=== PATIENT | female | born 1955 | race Caucasian/White ===

== ENCOUNTER 2016-09-18 09:15 | Observation (INO) ==
[2016-09-18] MEDS ORDERED: ASPIRIN PO STA (09:20)
[2016-09-18 09:34] LABS: MANUAL DIFF NEEDED? NO
[2016-09-18 09:36] LABS: BASO% 0.5 % (0.0-0.8); EOS# 0.27 X1000 (0.0-0.7); EOS% 3.3 % (0.0-10.0); HEMATOCRIT 42.5 % (37.0-47.0); HEMOGLOBIN 14.8 g/dL (12.0-16.0); IMM GRAN# 0.01 X1000 (0.0-0.04); IMM GRAN% 0.1 % (0.0-0.5); LYMPH# 2.63 X1000 (1.2-3.4); LYMPH% 32.4 % (20.5-51.1); MCH 29.7 PG (27-31); MCHC 34.8 g/dL (33-37); MCV 85.2 FL (81-99); MONO# 0.81 X1000 (0.11-0.59); MPV 9.6 FL (7.4-10.4); NEUT% 53.7 % (42.2-75.2); PLT 220 X1000 (130-400); RBC 4.99 XMIL (4.2-5.4)
--- NOTE | 2016-09-18 09:36 | EKG Report ---
Test Performed on : 09/18/2016 09:25:24 AM Test Reason : CHEST PAIN Blood Pressure : / mmHG Vent. Rate : 084 BPM Atrial Rate : 084 BPM P-R Int : 142 ms QRS Dur : 082 ms QT Int : 394 ms P-R-T Axes : 052 032 082 degrees QTc Int : 465 ms Normal sinus rhythm. Low voltage QRS Borderline ECG No previous ECGs available Unconfirmed Result
[2016-09-18 09:56] LABS: ALBUMIN 4.4 g/dL (3.5-5.0); CALCIUM 9.8 mg/dL (8.8-10.2); MAGNESIUM 1.9 mg/dL (1.5-2.7); POTASSIUM 4.1 mmol/L (3.5-5.1); TOTAL BILIRUBIN 0.3 mg/dL (0.20-1.00); TOTAL PROTEIN 7.4 g/dL (6.3-8.3)
[2016-09-18 09:58] LABS: URINE CULTURE PL NEEDED? NO
[2016-09-18 10:00] LABS: BILIRUBIN URINE NEGATIVE (NEGATIVE); BLOOD URINE NEGATIVE (NEGATIVE); CLARITY CLEAR (CLEAR); COLOR YELLOW; GLUCOSE URINE NEGATIVE (NEGATIVE); LEUKOCYTES URINE NEGATIVE (NEGATIVE); NITRITE URINE NEGATIVE (NEGATIVE); PROTEIN URINE NEGATIVE (NEGATIVE); UROBILINOGEN URINE NORMAL
[2016-09-18 10:02] LABS: INR 0.92 (0.86-1.15); PROTIME 12.7 Seconds (12.1-15.5)
[2016-09-18 10:03] LABS: PTT PL 33.9 Seconds (22.6-43.9)
--- NOTE | 2016-09-18 10:09 | Diag Imaging Result Doc PS360 ---
EXAM: CHEST-PORTABLE HISTORY: chest pain TECHNIQUE: Erect AP portable at 0948 COMMENT: There is apparent atelectasis in the right middle lobe. The heart size and pulmonary vascularity are within normal limits. There are no previous studies. IMPRESSION: Right middle lobe atelectasis. The possibility of underlying pneumonia cannot be excluded. Advise follow-up until clear. Electronically signed by Jean Marie Garcia 09/18/2016 10:06 AM
[2016-09-18 10:18] LABS: URINE EPITHELIAL CELLS <10 /HPF (<10); URINE SOURCE CLEAN CATCH
[2016-09-18] MEDS ORDERED: TORADOL IV ONE (10:59)
--- NOTE | 2016-09-18 11:01 | PROVIDER DOCUMENTATION ---
This chart was entered by Zully Woodward Scribe, acting as scribe for Carl Medrano MD. HPI-Chest Pain - General Chief Complaint: General Adult Stated Complaint: CHEST PAIN Time Seen by Provider: 09/18/16 09:19 Source: patient, family (Pt ) Allergies/Adverse Reactions: Patient Allergies Allergy/AdvReac Type Severity Reaction Status Date / Time amoxicillin Allergy Unknown Unknown Verified 09/18/16 09:32 morphine Allergy Unknown Unknown Verified 09/18/16 09:32 promethazine [From Phenergan] Allergy Unknown Unknown Verified 09/18/16 09:32 Sulfa (Sulfonamide Allergy Unknown Unknown Verified 09/18/16 09:32 Antibiotics) Home Medications: Home Medication List Medication Instructions Recorded Confirmed Last Taken Type Amlodipine Besylate [Amlodipine 1 tab PO DAILY 09/18/16 09/18/16 Unknown History Besylate] Aspirin 1 tab PO HS 09/18/16 09/18/16 Unknown History Clopidogrel Bisulfate [Plavix] 1 tab PO HS 09/18/16 09/18/16 Unknown History Diazepam 1 - 2 tab PO HS PRN 09/18/16 09/18/16 Unknown History Hydroxyzine HCl [Hydroxyzine HCl] 1 tab PO Q4-8H PRN PRN 09/18/16 09/18/16 Unknown History Montelukast [Singulair] 1 tab PO 09/18/16 09/18/16 Unknown History Oxycodone HCl 15 mg PO Q6H PRN PRN 09/18/16 09/18/16 Unknown History Ramipril [Altace] 10 mg PO 09/18/16 09/18/16 Unknown History Temazepam 1 tab PO 09/18/16 09/18/16 Unknown History Tizanidine HCl [Zanaflex] 1 - 2 tab PO 09/18/16 09/18/16 Unknown History Vortioxetine Hydrobromide 1 tab PO 09/18/16 09/18/16 Unknown History [Trintellix] - History of Present Illness-CP Nature of Presenting Problem: Pt is a 61 yof that presents to er with cc of left substernal squeezing chest pain x 0500 this am. Reports mild at this time. Pt reports has had two stents placed in 2010 in [place] and [facility] two years ago when she seen cell efficiency supervisor last they told her the stents were 50% blocked already. Pt reports she is a smoker and has tried quitting but is unable to. Pt also reports she is a diabetic (not treated), has hypertension, and high cholesterol. States takes an aspirin every night. Pt also reports she is a kidney donor (L) since 1991 and states couple weeks ago she went to see her Family doctor and states her kidney functions were low. Pt has noticed an odor to her urine and her right "kidney) hurting. Pt does not have an established cell efficiency supervisor in [place]. Location: reports: substernal Chest Pain Radiation: reports: no radiation Quality of Pain: reports: other (squeezing) Severity in ED: mild Onset/Duration: this morning Timing: still present Aspirin Treatment Today: 325 mg x 1, provided by ED Similar Symptoms Previously?: Yes Recently Seen Here or By Another Healthcare Provider: Yes Review of Systems - Adult - REVIEW OF SYSTEMS - ADULT Constitutional: denies: chills, fever, fatique Eyes: reports: no symptoms reported Ears, Nose, Mouth & Throat: reports: no symptoms reported Cardiovascular: reports: chest pain. denies: irregular heart rate, orthopnea, syncope Respiratory: denies: cough, shortness of breath, wheezing Gastrointestinal: reports: no symptoms reported Genitourinary: reports: see HPI, flank pain. denies: dysuria, hematuria, hesitency, incontinence, urinary retention, urgency Musculoskeletal: reports: no symptoms reported Integumentary: reports: no symptoms reported Neurological: reports: no symptoms reported Psychiatric: reports: no symptoms reported Endocrine: reports: no symptoms reported Hematologic/Lymphatic: reports: no symptoms reported Allergic/Immunologic: reports: no symptoms reported All Other Systems: Reviewed and Negative Past History - Adult - PAST MEDICAL HISTORY-ADULT Review of Records: reports: Nursing Assessment Review, Medications Reviewed Major Childhood Illnesses: reports: denies history Cardiovascular: reports: cardiac disease, HTN Respiratory: denies: cystic fibrosis, lung disease, tuberculosis Genitourinary: reports: other (kidney donor left) Musculoskeletal: reports: chronic pain (migraines) Neurological: reports: headaches/migraines - PRIOR SURGERIES/PROCEDURES Surgical/Procedure History: reports: cardiac stent - IMMUNIZATION STATUS Childhood Immunizations: See Nurse Assessment Flu Vaccine: See Nurse Assessment - SOCIAL HISTORY Smoking: cigarettes, greater than 1 pack/day Provider spent 3-5 mins advising pt. on dangers of tobacco.: Discussed manners to quit use, and f/u contacts for add'l counseling. Substance Use: none/never Alcohol Use Frequency: never Physical Exam-General - PHYSICAL EXAM-ADULT Initial Vital Signs Reviewed: Yes - CONSTITUTIONAL General Appearance: appears well, alert, mild distress - EYES Eyes: PERRL/EOMI - NECK Neck: non-tender, full range of motion, supple, normal inspection - RESPIRATORY Respiratory: chest non-tender, lungs clear, normal breath sounds, no pleuratic chest pain, no respiratory distress, no accessory muscle use - CARDIOVASCULAR Cardiovascular: regular rate, rhythm. negative: JVD, bradycardia, tachycardia - GASTROINTESTINAL (ABDOMEN) Abdominal Exam: normal bowel sounds, non tender, soft, no organomegaly, no pulsatile mass - MUSCULOSKELETAL Back Exam: no vertebral tenderness, CVA tenderness (right mild ttp) Extremity: normal range of motion, non-tender - SKIN Integumentary: normal color, normal turgor, warm/dry - PSYCHIATRIC Psych/Mental Status: normal mood/affect, normal thought content, normal thought process, oriented x 3 Progress - PLAN OF CARE/RESULTS Progress/Plan/Lab Results: Vital Signs - 8 hr 09/18/16 09:21 Temperature 98 F Pulse Rate 82 Respiratory Rate 20 Blood Pressure 159/89 O2 Sat by Pulse Oximetry 98 Laboratory Results - last 24 hr 09/18/16 09/18/16 09/18/16 09:30 09:30 09:30 WBC RBC Hgb Hct MCV MCH MCHC RDW Std Deviation Plt Count MPV Immature Gran % (Auto) Neut % (Auto) Lymph % (Auto) [place] % (Auto) Eos % (Auto) Baso % (Auto) Immature Gran # (Auto) Neut # (Auto) Lymph # (Auto) [place] # (Auto) Eos # (Auto) Baso # (Auto) PT INR APTT (Factor Assay) Sodium 137 Potassium 4.1 Chloride 102 Carbon Dioxide 24 L Anion Gap 11 BUN 11 Creatinine 1.1 H Estimated GFR/1.73 m2 50 BUN/Creatinine Ratio 10 Glucose 115 H Calculated Osmolality 274 Calcium 9.8 Magnesium 1.9 Total Bilirubin 0.30 AST 14 ALT 15 Alkaline Phosphatase 71 Creatine Kinase 84 Troponin T < 0.010 Ajg-[id number]-Samvmkaffbk Pept 44 Total Protein 7.4 Albumin 4.4 Globulin 3.0 Albumin/Globulin Ratio 1.0 Urine Source Urine Color Urine Clarity Urine pH Ur Specific Nye Urine Protein Urine Ketones Urine Blood Urine Nitrite Urine Bilirubin Urine Urobilinogen Urine Microscopic RBC Urine WBC Ur Epithelial Cells Urine Glucose 09/18/16 09/18/16 09/18/16 09:30 09:30 09:45 WBC 8.11 RBC 4.99 Hgb 14.8 Hct 42.5 MCV 85.2 MCH 29.7 MCHC 34.8 RDW Std Deviation 12.8 Plt Count 220 MPV 9.6 Immature Gran % (Auto) 0.1 Neut % (Auto) 53.7 Lymph % (Auto) 32.4 [place] % (Auto) 10.0 H Eos % (Auto) 3.3 Baso % (Auto) 0.5 Immature Gran # (Auto) 0.01 Neut # (Auto) 4.35 Lymph # (Auto) 2.63 [place] # (Auto) 0.81 H Eos # (Auto) 0.27 Baso # (Auto) 0.04 PT 12.7 INR 0.92 APTT (Factor Assay) 33.9 Sodium Potassium Chloride Carbon Dioxide Anion Gap BUN Creatinine Estimated GFR/1.73 m2 BUN/Creatinine Ratio Glucose Calculated Osmolality Calcium Magnesium Total Bilirubin AST ALT Alkaline Phosphatase Creatine Kinase Troponin T Dbu-[id number]-Txvvfepilui Pept Total Protein Albumin Globulin Albumin/Globulin Ratio Urine Source CLEAN CATCH Urine Color YELLOW Urine Clarity CLEAR Urine pH 7.0 Ur Specific Nye 1.000 Urine Protein NEGATIVE Urine Ketones NEGATIVE Urine Blood NEGATIVE Urine Nitrite NEGATIVE Urine Bilirubin NEGATIVE Urine Urobilinogen NORMAL Urine Microscopic RBC Not Reportable Urine WBC NEGATIVE Ur Epithelial Cells <10 Urine Glucose NEGATIVE Orders Category Date Time Status Cardiac Monitoring DIRECTED Care 09/18/16 09:20 Active Oxygen Therapy- ED Nursing DIRECTED Care 09/18/16 09:20 Active Saline Loc NOW Care 09/18/16 09:20 Active CHEST-PORTABLE [RAD] Stat Exams 09/18/16 09:21 Completed CBC WITH ELECTRONIC DIFF [HEME] Stat Lab 09/18/16 09:30 Completed CK PROFILE [SP CHEM] Stat Lab 09/18/16 09:30 Completed COMPREHENSIVE METABOLIC PANEL [CHEM] Stat Lab 09/18/16 09:30 Completed MAGNESIUM [CHEM] Stat Lab 09/18/16 09:30 Completed PRO B-NATRIURETIC PEPTIDE Stat Lab 09/18/16 09:30 Completed PROTIME WITH INR PL [COAG] Stat Lab 09/18/16 09:[address] [COAG] Stat Lab 09/18/16 09:30 Completed TROPONIN T Stat Lab 09/18/16 09:30 Completed urinalysis [URINALYSIS PL W/POSS RFLX CULT] [URINALYSIS Lab 09/18/16 09:45 Completed ] Stat Aspirin Med 09/18/16 09:20 Discontinued 325 mg PO STAT STA Ketorolac [Toradol] Med 09/18/16 10:59 Once 30 mg IV NOW ONE EKG [EKG] Stat Ther 09/18/16 09:20 Draft EKG [EKG] Stat Ther 09/18/16 09:44 Ordered Result Diagrams: 09/18/16 09:30 09/18/16 09:30 - EKG 1 Time of EKG reading by physician:: 09:25 EKG Read and Signed by:: Carl Medrano EKG Interpretation (*Must complete 3 of following elements*): Abnormal Rate: 84 Rhythm: nsr [place]: normal QRS: other (low voltage QRS) ST Wave: normal - XRAY 1 XRAY: Bilateral XRAY Study: Chest Impression: Abnormal (Right middle lobe atelectasis. The possibility of underlying pneumonia cannot be excluded.) - CONSULTS/PCP/HOSPITALIST Notification #1 *Consult/PCP/Hospitalist*: Dr. Meade Time Discussed: 10:50 Consult Disposition: Admit Departure - Departure Date of Disposition Decision: 09/18/16 Time of Disposition Decision: 11:00 DIAGNOSIS: Chest pain, Pneumonia Disposition: ADMITTED INPATIENT 09 Certified Medical Emergency: Emergent Condition: Stable Referrals and Follow-Ups: None,PCP [Primary Care Provider] - - Critical Care Note This patient required my direct & personal management of CC.: No Attestation - Physician/ ZOIE Attestation The physician spent face to face time with patient:: Yes Advanced Practice Provider documentation review:: The physician spent face to face time with this patient and agrees with all MLP documentation, treatment, and medical decision making by the MLP. See provider notes for further information. This chart was documented by the indicated scribe, (Zully Woodward Scribe) and accurately reflects the services I performed and decisions made by , Carl Medrano MD, as attested by the provider's signature.
[2016-09-18] MEDS ORDERED: LEVAQUIN 500 MG/D5W 500 MG/100 ML IVPB IV ONE (11:02)
[2016-09-18] MEDS ORDERED: VALIUM PO ONE (13:40)
[2016-09-18] MEDS: NICODERM PATCH TD SCH (13:41)
[2016-09-18 14:18] LABS: HEMOGLOBIN A1C 6.2 % (4.8-6.0)
--- NOTE | 2016-09-18 14:52 | HISTORY AND PHYSICAL ---
CHIEF COMPLAINT: Left squeezing chest pain. HISTORY OF PRESENT ILLNESS: This is a 61-year-old female with a history of CAD status post stents, who presented to the emergency room complaining of left substernal squeezing type chest pain since about 5 this morning. She does state that she awoke with this pain. She had no accompanying symptoms. No radiation. She could find no exacerbating or relieving factors. The pain has been a constant pain. It does not change with movement, cough, or palpation. Of note, she does have a history of CAD having 2 stents placed in [place] in 2010. She did state that 2 years ago. She underwent a heart catheterization and she was told that the stents were 50% blocked but that they would not do anything until they were over 75% blocked and she has not followed up since that procedure. In the emergency room troponins were negative. EKG revealed a sinus rhythm at a rate of 84. Chest x-ray revealed a right middle lobe atelectasis with the possibility of underlying pneumonia not excluded. Blood cultures were drawn. She was given Levaquin and she is being admitted for further evaluation and treatment. PAST MEDICAL HISTORY: 1. CAD status post PCI x2 in 2010. 2. Diabetes mellitus, untreated. 3. Hyperlipidemia. 4. Hypertension. PAST SURGICAL HISTORY: Cholecystectomy, hysterectomy, tubal ligation, nephrectomy for donation, hernia repair, spinal fusion, bladder sling, and carpal tunnel surgery. SOCIAL HISTORY: She smokes a pack to 2 packs a day. She denies alcohol or illicit drug use. ALLERGIES: Amoxicillin, morphine, Phenergan, and sulfa with unknown reactions. HOME MEDICATIONS: 1. Ellipta 62.5 mcg inhaled daily. 2. Crestor 20 mg at bedtime. 3. Trintellix 1 tablet at bedtime. 4. Altace 10 at bedtime. 5. Singulair 1 tablet at bedtime. 6. Aspirin 325 daily. 7. Zanaflex 4 mg 1-2 tablets at bedtime. 8. Restoril 30 mg at bedtime. 9. Hydroxyzine 25 mg p.r.n. 10. Plavix 75 mg daily. 11. Amlodipine 5 mg daily. 12. She also takes oxycodone and Valium. There is a discrepancy on her dose and dosage instructions. Therefore, the nurses will call the pharmacy and clarify the doses. REVIEW OF SYSTEMS: A 14 point review of systems is discussed with the patient with pertinent positives being squeezing substernal chest pain. She denies dizziness, syncope, cough, fever, chills, PND, orthopnea, dyspnea on exertion, nausea, vomiting, diarrhea, constipation, black or bloody vomitus, black or bloody stools, hematuria, dysuria, frequency, urgency. PHYSICAL EXAMINATION: GENERAL: This is a 61-year-old female who is sitting up in the bed, anxious, but in no distress. VITAL SIGNS: Blood pressure is 145/78 with a heart rate of 72, respirations are 16, temperature is 97.5 degrees with room air saturation of 100%. HEENT: Head is normocephalic, atraumatic. Pupils equal, round, react to light. EOMs are intact. Sclerae anicteric. Mucous membranes are moist. NECK: Supple. Trachea midline. CARDIOVASCULAR: Regular rate and rhythm. S1 and S2 appreciated. PULMONARY: Breath sounds are clear. No increased work of breathing noted. CHEST WALL: Nontender to palpation. GASTROINTESTINAL: Abdomen is soft, nontender, nondistended with bowel sounds in all 4 quadrants. BACK: She has some slight right CVAT. MUSCULOSKELETAL: Good range of motion of joints. EXTREMITIES: No clubbing, cyanosis, or edema. Calves are nontender. Pulses are palpable x4. NEUROLOGIC: She is alert and oriented x3 with cranial nerves 2 through 12 grossly intact. DIAGNOSTICS: WBC is 8.1 with a hemoglobin of 14.8, hematocrit 42.5, and platelets of 220,000. INR 0.92. Sodium is 137, potassium 4.1, BUN 11, creatinine 1.1, with a glucose of 115. Troponin is less than 0.010. Urinalysis is essentially negative. Blood cultures are pending. Chest x-ray revealed right middle lobe infiltrate with pneumonia not being excluded. EKG reveals sinus rhythm at a rate of 84. ASSESSMENT AND PLAN: 1. Right middle lobe infiltrate/pneumonia. Blood cultures are drawn in the emergency room. She was started on Levaquin. She states that she only has 1 kidney and evidently reportedly she reports having recent labs showing decreased kidney function. We will continue. 2. Chronic chest pain. Cardiac enzymes have been negative. We will continue to trend. She will be placed on telemetry. We will give supplemental oxygen as needed. Healthy heart diet. We will identify her home medications and continue as appropriate. We will obtain records from her rural route mail carrier in [place]. Cardiology will be consulted. 3. Coronary artery disease with a history of PCI x2. As stated above, we will obtain records from her rural route mail carrier in [place]. We will continue her home medication regimen. 4. Diabetes mellitus. She is untreated. We will get an A1c. We will do fingerstick blood sugars. 5. Hypertension. As stated, we will identify her home medications and continue as appropriate. 6. Hyperlipidemia. 7. Tobacco abuse. Nicotine patch. I did discuss smoking cessation with the patient, with the perils of continuing smoking as well as ways to assist her to stop. 8. History of left nephrectomy as a live donor. 9. For deep vein thrombosis prophylaxis we will use Lovenox and for gastrointestinal prophylaxis Prilosec. Further treatments pending hospital course. Dictated by ALFREDA Soares for Hardik Meade MD cc: ALFREDA Soares MD
[2016-09-18] MEDS: HUMALOG (PARKWAY) SUBQ SCH ×2 (19:19→21:12)
[2016-09-18] MEDS ORDERED: VALIUM PO PRN (19:57)
[2016-09-18] MEDS: HYDROXYZINE PO PRN (20:38)
[2016-09-18] MEDS: OXY IR PO PRN (20:40)
[2016-09-18] MEDS ORDERED: RESTORIL PO SCH (21:00)
[2016-09-18] MEDS ORDERED: ASPIRIN PO SCH (21:00)
[2016-09-18] MEDS ORDERED: SINGULAIR PO SCH (21:00)
[2016-09-18] MEDS ORDERED: PLAVIX PO SCH (21:00)
[2016-09-18] MEDS ORDERED: CRESTOR PO SCH (21:00)
[2016-09-18] MEDS ORDERED: ALTACE PO SCH (21:00)
[2016-09-18] MEDS ORDERED: ZANAFLEX PO SCH (21:00)
[2016-09-18] MEDS ORDERED: VORTIOXETINE HYDROBROMIDE PO SCH (21:00)
--- NOTE | 2016-09-18 21:35 | CONSULTATION ---
DATE OF CONSULTATION: 09/18/2016 IMPRESSION: 1. Episode of chest tightness 1 week ago which was brief. 2. Primary complaint of right flank discomfort, probably noncardiac in origin. 3. Atherosclerotic coronary disease with history of previous myocardial infarction and subsequent angioplasty/stenting in December 2010 at [employer] [place]. Patient reportedly had 2 coronary stents placed. The patient had re-evaluation with coronary angiography about 2-1/2 years ago which reportedly demonstrated 50% blockage and medical management was felt most appropriate. She had stress study last year in [place], [place] which was reportedly negative. 4. Diabetes mellitus. 5. Chronic cigarette use. 6. Hypertension. 7. Hyperlipidemia. RECOMMENDATIONS: 1. Follow up cardiac enzymes, but doubt recent myocardial insult given atypical nature of her symptoms. 2. Continue medical management of coronary atherosclerosis unless objective evidence of ischemia. It is reasonable to discharge the patient to have outpatient follow-up if cardiac enzymes negative. 3. Smoking cessation strongly advised. HISTORY: This 61-year-old female with past history of atherosclerotic coronary disease as outlined above, chronic cigarette use, diabetes mellitus, hypertension, hyperlipidemia was admitted for further evaluation after she presented to the emergency room with primary complaint of right flank discomfort. She had an episode of chest discomfort a week ago without recurrence. Episode was relatively brief and consisted of episode of chest pressure. She has history of myocardial infarction in 2010 with symptoms of bilateral jaw discomfort, but no chest discomfort. She had 2 coronary stents placed. She had re-evaluation with cardiac catheterization about 2-1/2 years ago and reportedly had a 50% stenosis. Records not available. She relates having a stress test done last year in [place], [place] after which continued medical management was felt to be most appropriate. She relates several days of right flank discomfort. There has been no fever. She has had some chronic nonproductive cough. In the emergency room she was noted to have some right middle lobe atelectasis. She was admitted for possible pneumonia. PAST MEDICAL HISTORY: 1. Atherosclerotic coronary disease as outlined above. 2. Diabetes mellitus. 3. Hyperlipidemia. 4. Hypertension. 5. Obesity. PAST SURGICAL HISTORY: Cholecystectomy. Hysterectomy. Tubal ligation. Left nephrectomy for donation. Hernia repair. Spinal fusion. Bladder sling procedure. Carpal tunnel surgery. ALLERGIES: She is allergic or intolerant to amoxicillin, morphine, Phenergan, and sulfa. MEDICATIONS: Prior to admission as listed. SOCIAL HISTORY: She continues to smoke. 1-2 packs cigarettes per day. She does not use alcohol. She is originally from [facility] and moved to [place], [place]. She moved to the [place], [place] area about four months ago. She is . FAMILY HISTORY: Positive for coronary disease. REVIEW OF SYSTEMS: Pulmonary: Noteworthy for nonproductive cough, but no dyspnea. Gastrointestinal: Negative. Constitutional: Negative for fever. Remainder of review of systems negative/noncontributory with 14 total systems reviewed. PHYSICAL EXAMINATION: General: Obese, middle-aged female in no distress. Patient does not appear toxic. She is on room air and appears to be breathing comfortably. Vital Signs: As recorded are stable. HEENT: Extraocular movements appear intact. Mucous membranes are moist. Neck: Supple without jugular venous distention. There are no carotid bruits. Chest: Clear to auscultation. Cardiac: Reveals a regular rate and rhythm without appreciable murmur or gallop. Abdomen: Soft, nontender. Bowel sounds are normal. Extremities: Without edema. Neurologic: Reveals her to be alert, fully oriented. Speech is fluent. She moves all 4 extremities equally well. Skin: Warm and dry. Psychiatric: Reveals her mood to be appropriate. IMAGING STUDIES: Electrocardiogram demonstrates sinus rhythm and low voltage QRS, but is otherwise within normal limits. cc: Oleg Hyman MD
[2016-09-19 06:37] LABS: HEMATOCRIT 40.6 % (37.0-47.0); HEMOGLOBIN 13.9 g/dL (12.0-16.0); MCH 29.5 PG (27-31); MCHC 34.2 g/dL (33-37); MCV 86.2 FL (81-99); MPV 9.9 FL (7.4-10.4); RBC 4.71 XMIL (4.2-5.4)
[2016-09-19] MEDS: HUMALOG (PARKWAY) SUBQ SCH ×2 (06:43→11:19)
[2016-09-19] MEDS: PRILOSEC PO SCH ×2 (06:43→09:15)
[2016-09-19 06:50] LABS: CALCIUM 9.6 mg/dL (8.8-10.2); POTASSIUM 4.4 mmol/L (3.5-5.1)
[2016-09-19] MEDS ORDERED: PATIENT'S OWN MED INH SCH (07:30)
[2016-09-19] MEDS ORDERED: LOVENOX SUBQ SCH (09:00)
[2016-09-19] MEDS ORDERED: NORVASC PO SCH (09:00)
[2016-09-19] MEDS: NICODERM PATCH TD SCH (09:13)
[2016-09-19 10:55] VITALS: BP 124/71
[2016-09-19] MEDS ORDERED: LEVAQUIN 500 MG/D5W 500 MG/100 ML IVPB IV SCH (11:00)
[2016-09-19] MEDS: OXY IR PO PRN (12:01)
[2016-09-19] MEDS: HYDROXYZINE PO PRN (12:01)
== END 2016-09-19 13:35 | disposition home or self-care (01) ==
LOC: P.ED 09:15 → P.MEDSURG 09:15
PROVIDERS: ATTEND Family Medicine